=== PATIENT | female | born 1995 | race Caucasian/White ===

== ENCOUNTER 2020-05-23 06:02 | Emergency (ER) | payer OTHER ==
[~2020-05-23 06:02] MED LIST: CYCLOBENZAPRINE10 MG PO; NAPROSYN500 MG PO
[2020-05-23 06:59] LABS: HEMOGLOBIN 13.8 gm/dl (12.3-15.3); RED BLOOD COUNT 4.68 M/UL (4.00-5.10); WHITE BLOOD COUNT 10.8 K/UL (4.5-11.0)
[2020-05-23 07:34] LABS: BUN/CREATININE RATIO 21 (0-10)
== END 2020-05-23 08:23 | disposition home or self-care (01) ==
LOC: ER1 06:02
PROVIDERS: Family Medicine
DX: R07.9 Chest pain, unspecified (principal); F17.200 Nicotine dependence, unspecified, uncomplicated
CPT/HCPCS: 71045; 80053; 82550; 82553; 83874; 84484; 84703; 85025; 85379; 93005; 99285

== ENCOUNTER 2020-05-25 19:05 | Emergency (ER) | payer OTHER ==
[2020-05-25 20:00] LABS: HEMOGLOBIN 14.2 gm/dl (12.3-15.3); RED BLOOD COUNT 4.73 M/UL (4.00-5.10); WHITE BLOOD COUNT 10.9 K/UL (4.5-11.0)
[2020-05-25 20:23] LABS: BUN/CREATININE RATIO 16 (0-10)
== END 2020-05-25 21:00 | disposition home or self-care (01) ==
LOC: ER1 19:05
PROVIDERS: Family Medicine
DX: R07.9 Chest pain, unspecified (principal); F17.200 Nicotine dependence, unspecified, uncomplicated; Z86.19 Personal history of other infectious and parasitic diseases
CPT/HCPCS: 36415; 71046; 80053; 82550; 82553; 83874; 84484; 85025; 93005; 99285